=== PATIENT | female | born 1985 | race Two or more races ===

== ENCOUNTER → 2019-08-15 | Outpatient (CLI) | payer OTHER | END | disposition home or self-care (01) | LOC: RAD 07:41 | DX: M99.01 Segmental and somatic dysfunction of cervical region (principal); M99.03 Segmental and somatic dysfunction of lumbar region; M99.04 Segmental and somatic dysfunction of sacral region ==

== ENCOUNTER 2021-08-15 07:22 | Outpatient (CLI) | payer OTHER | END 2021-08-15 07:32 | disposition home or self-care (01) | LOC: MRI 07:22 | PROVIDERS: ATTEND Orthopaedic Surgery | DX: M25.561 Pain in right knee (principal) | CPT/HCPCS: 73718 ==

== ENCOUNTER 2023-11-15 08:10 | Outpatient (CLI) | payer OTHER | END 2023-11-15 08:24 | disposition home or self-care (01) | LOC: MRI 08:10 | PROVIDERS: ATTEND Anesthesiology | DX: M54.12 Radiculopathy, cervical region (principal); M53.1 Cervicobrachial syndrome | CPT/HCPCS: 72141 ==